=== PATIENT | female | born 1960 | race Caucasian/White ===

== ENCOUNTER → 2016-12-30 | Outpatient (CLI) | payer OTHER ==
[~2016-12-30] MED LIST: B-COCAP2; CLC100; DIGESTIVE ENZYMES; EXCETAB42; IBUP600T44; LRT5; MULT-506; THYROID
== END | disposition home or self-care (01) ==
LOC: C.PAPS 15:13
PROVIDERS: ATTEND Obstetrics & Gynecology
DX: Z12.4 Encounter for screening for malignant neoplasm of cervix (principal)

== ENCOUNTER → 2017-01-05 | Outpatient (CLI) | payer OTHER ==
--- NOTE | 2017-01-05 14:36 | MAMMOGRAPHY REPORT ---
BILATERAL DIGITAL DIAGNOSTIC MAMMOGRAM TOMOSYNTHESIS WITH CAD: 01/05/2017 CLINICAL HISTORY: 56-year-old woman presents for follow-up of benign-appearing microcalcifications i n the upper outer quadrant of the right breast, and a benign appearing lucent oval circumscribed sub -centimeter mass in the medial left breast. She is status post benign biopsy in the 8:00 left breas t which yielded fibrocystic changes. TECHNIQUE: Bilateral CC and MLO 2-D digital and tomosynthesis images, spot magnification right CC an d ML views were obtained. Current study was also evaluated with a Computer Aided Detection (CAD) sy stem. COMPARISON: Comparison is made to exams dated: 04/08/2016 ultrasound biopsy, 04/08/2016 mammogram, mammogram, 02/27/2012 mammogram - [facility], and 11/11/2006 mammogram. BREAST COMPOSITION: There are scattered areas of fibroglandular density in both breasts. FINDINGS: There is a ribbon chapped metallic biopsy marker in the 8:00 left breast. No residual mas s is seen at the biopsy site, which is concordant of the pathology results of benign fibrocystic patrick nge. This most likely represented a cyst. The lucent circumscribed oval mass located medial to the biopsy marker is unchanged measuring 5 mm. There are a few stable benign-appearing microcalcificat ions within the left breast. No new suspicious mass, architectural distortion or cluster of suspici ous microcalcifications. There are several benign rim calcifications within the right breast. The cluster of microcalcificat ions in the upper outer middle one third of the right breast is no longer identified on the spot mag nification views or the full field views, confirming benignity. No new suspicious mass or focal are as of architectural distortion are identified in the right breast. IMPRESSION: ACR BI-RADS CATEGORY 2: BENIGN No residual mass at the site of prior benign biopsy in the left breast, and no microcalcifications i dentified in the right upper outer quadrant, confirming benignity in each breast. There is no mammo graphic evidence of malignancy bilaterally. Recommend follow-up in 1 year for next annual screening mammogram. These results and recommendations were discussed with the patient at the time of the ex am. Approximately 10% of breast cancers are not detected with mammography. A negative mammographic repor t should not delay biopsy if a clinically suggestive mass is present. Lexis Richard M.D. ay/:01/05/2017 12:22:54 Single Pointed Operator: Clara OGLESBY)(Roberto), [facility] letter sent: Normal 1/2 BI-RADS Code: ACR BI-RADS Category 2: Benign
== END | disposition home or self-care (01) ==
LOC: C.MAMM 10:48
PROVIDERS: ATTEND Obstetrics & Gynecology
DX: R92.0 Mammographic microcalcification found on diagnostic imaging of breast (principal); N63 Unspecified lump in breast

== ENCOUNTER 2017-10-19 09:34 | Inpatient (IN) | payer OTHER ==
[2017-09-22 10:11] VITALS: BMI 32.0
--- NOTE | 2017-09-22 11:00 | PAT Medication Instructions ---
Service Date Sep 22, 2017. Current Home Medication List Hydrochlorothiazide (Hctz), 25 MG PO QAM Ibuprofen (Motrin), 600 MG PO Q8 Multivitamin (Multivitamin), 1 TAB PO QAM Thyroid ([place] Thyroid), 60 MG PO QAM [Cbd Oil], 1 DROP SL DAILY PRN for Pain [Cbd Topical], 1 DOSE TOP DAILY PRN for Pain Medication Instructions For Your Scheduled Surgery - Hold the following medications 7 days prior to surgery: [Cbd Oil], 1 DROP SL DAILY PRN for Pain - Hold the following medications 24 hours prior to surgery: [Cbd Topical], 1 DOSE TOP DAILY PRN for Pain - Hold the following medications the morning of surgery: Hydrochlorothiazide (Hctz), 25 MG PO QAM Multivitamin (Multivitamin), 1 TAB PO QAM Ibuprofen (Motrin), 600 MG PO Q8h - Take the following medications the morning of surgery with a sip of water OTHERWISE NOTHING TO EAT OR DRINK AFTER MIDNIGHT: Thyroid ([place] Thyroid), 60 MG PO QAM - Take the following medications as scheduled the night before surgery: Ibuprofen (Motrin), 600 MG PO Q8h If you have any questions please call us at [phone] or [phone] or [phone]
[2017-09-22 11:25] LABS: BASO % 0.4 %; BASO ABS # 0.03 K/uL (0-0.2); COMPLETE YES; EOS % 1.5 %; HEMATOCRIT 43.3 % (37-47); IG% 0.1 %; LYMPH % 29.1 %; LYMPH ABS # 1.95 K/uL (1.2-3.4); MEAN CELL VOLUME 88.9 fL (80-100); MEAN CORPUSCULAR HEMOGLOBIN 30.8 pg (25-34); MEAN CORPUSCULAR HGB CONC 34.6 g/dl (32-36); MEAN PLATELET VOLUME 9.4 fL (7.4-10.4); NEUT % 61.9 %; PLATELET COUNT 278 K/uL (130-400); RED BLOOD COUNT 4.87 M/uL (4.2-5.4); WHITE BLOOD COUNT 6.69 K/uL (4.8-10.8)
[2017-09-22 11:27] LABS: URINE APPEARANCE CLEAR (CLEAR); URINE BILIRUBIN NEG (NEG); URINE COLOR YELLOW; URINE NITRITE NEG (NEG); URINE PH 6.5 (4.5-7.5); UROBILINOGEN NEG (NEG); ZZUR CULT IF INDIC CLEAN CATCH NO
[2017-09-22 11:29] LABS: MANUAL MICROSCOPIC REQUIRED? NO; REVIEW REQ? NO
--- NOTE | 2017-09-22 11:29 | DIAGNOSTIC IMAGING REPORT ---
CHEST 2 VIEWS ROUTINE CLINICAL HISTORY: Preoperative chest COMPARISON STUDY: No previous studies for comparison. FINDINGS: The cardiac and mediastinal contours are normal. There is no evidence of focal pulmonary consolidation. There is no evidence of failure. No pleural effusions are visualized.[ IMPRESSION: No active disease in the chest. Electronically signed by: Lenin Levy M.D. 09/22/2017 11:27 AM Dictated Date/Time: 09/22/2017 11:27 AM
[2017-09-22 11:36] LABS: INR 0.9 (0.9-1.1); PROTHROMBIN TIME (PATIENT) 9.9 SECONDS (9.0-12.0)
[2017-09-22 12:01] LABS: BUN/CREATININE RATIO 19.3 (10-20); CALCIUM 9.5 mg/dl (8.5-10.1); CREATININE 0.81 mg/dl (0.60-1.20); POTASSIUM 3.5 mmol/L (3.5-5.1)
[~2017-10-19] VITALS: Ht 170.2 cm; Wt 92.8 kg
[2017-10-19] VITALS (11 sets, daily range): BP systolic 117–177; BP diastolic 71–94; PULSE 78–94; TEMP 36.3–36.6; O2SAT 92–99; Ht 170.2 cm; Wt 92.8 kg
[~2017-10-19 09:34] MED LIST changes: -B-COCAP2; +CBD OIL SL; +CBD TOP; +CEFAZOLIN 2000MG IV PUSH 10 ML IV SCH; -CLC100; -DIGESTIVE ENZYMES; -EXCETAB42; +HYDR25TA4 PO; -IBUP600T44; +IBUP600T44 PO; +LACTATED RINGER'S 1000ML 1,000 ML IV SCH; -LRT5; -MULT-506; +MULT-506 PO; +SCOPOLAMINE 1.5 MG TDSY TD SCH; +THY/30 PO; -THYROID
[2017-10-19] MEDS ORDERED: FLUMAZENIL 0.1 MG/1 ML 10 ML VIAL IV PRN (11:00)
[2017-10-19] MEDS ORDERED: NALOXONE HCL 0.4 MG/1 ML VIAL/CARP IV PRN ×3 (11:00→13:15)
[2017-10-19] MEDS ORDERED: ATROPINE SULFATE 0.1 MG/ML 5ML SYR IV PRN (11:00)
[2017-10-19] MEDS ORDERED: PHENYLEPHRINE 100MCG/ML 5ML SYR IV PRN (11:00)
[2017-10-19] MEDS ORDERED: MEPERIDINE HCL 25 MG/ML CARP IV PRN (11:00)
[2017-10-19] MEDS ORDERED: ONDANSETRON INJ 2 MG/ML 2 ML VIAL IV PRN ×2 (11:00→13:15)
[2017-10-19] MEDS ORDERED: LABETALOL HCL IV 5 MG/ML 20ML IV PRN (11:00)
[2017-10-19] MEDS ORDERED: EpHEDrine SULFATE INJ 50 MG/ML AMP IV PRN (11:00)
[2017-10-19] MEDS ORDERED: FENTANYL CITRATE INJ 50 MCG/1 ML 2 ML VIAL IV PRN (11:00)
[2017-10-19] MEDS ORDERED: HYDROmorphone INJ 2 MG/ML SYR/VIAL IV PRN (11:00)
[2017-10-19] MEDS ORDERED: MIDAZOLAM HCL 1 MG/ML 2ML VIAL ONE (11:03)
[2017-10-19] MEDS ORDERED: FENTANYL CITRATE INJ 50 MCG/1 ML 2 ML VIAL ONE ×3 (11:03→12:51)
--- NOTE | 2017-10-19 11:12 | History and Physical ---
History & Physical Date Oct 19, 2017. Chief Complaint Back and leg pain History of Present Illness The patient is a 57 year old female with complaints of back and leg pain Additional History Hepatic Disease: No Endocrine Disorder: No Kidney Disease: No Hypertension: Yes Heart Disease: No Bleeding Tendencies: No Infectious Diseases: No Allergies Coded Allergies: Oxycodone (Verified Allergy, Unknown, nausea and vomiting, 10/19/17) Propoxyphene (Verified Allergy, Unknown, nausea and vomiting, 10/19/17) Codeine (Verified Adverse Reaction, Mild, VOMITING, 10/19/17) Home Medications Scheduled Hydrochlorothiazide (Hctz), 25 MG PO QAM Ibuprofen (Motrin), 600 MG PO Q8 Multivitamin (Multivitamin), 1 TAB PO QAM Thyroid ([place] Thyroid), 60 MG PO QAM Scheduled PRN [Cbd Oil], 1 DROP SL DAILY PRN for Pain [Cbd Topical], 1 DOSE TOP DAILY PRN for Pain Physical Examination Skin: warm/dry, no rash Eyes: normal inspection, EOMI, sclerae normal ENT: normal ENT inspection, pharynx normal Head: normocephalic, atraumatic Neck: supple, no adenopathy, trachea midline Respiratory/Chest: lungs clear, normal breath sounds, no respiratory distress Cardiovascular: regular rate, rhythm, no edema, no murmur Abdomen / GI: normal bowel sounds, non tender Back: normal inspection Extremities: normal inspection, normal range of motion Neurologic/Psych: no motor/sensory deficits, alert, normal reflexes, oriented x 3 Diagnosis Lumbar spinal stenosis Plan of Treatment L4 5 decompression fusion
[2017-10-19] MEDS ORDERED: BACITRACIN 50000 UNIT VIAL ONE (11:16)
[2017-10-19] MEDS ORDERED: BUPIVACAINE/EPINEPHRINE 0.5% MPF 1:200,000 30 ML VIAL ONE (11:16)
[2017-10-19] MEDS ORDERED: HYDROmorphone INJ 2 MG/ML SYR/VIAL ONE ×2 (12:01→13:08)
[2017-10-19] MEDS ORDERED: LIDOCAINE HCL 2% 2 ML VIAL (20MG/ML) ONE (13:07)
[2017-10-19] MEDS ORDERED: DEXAMETHASONE SOD INJ 4 MG/ML VIAL ONE (13:07)
[2017-10-19] MEDS ORDERED: ONDANSETRON INJ 2 MG/ML 2 ML VIAL ONE (13:07)
[2017-10-19] MEDS ORDERED: PROPOFOL IV EMULSION 10 MG/ML 20 ML VIAL IV ONE (13:07)
[2017-10-19] MEDS ORDERED: GLYCOPYRROLATE INJ 0.2 MG/ML VIAL ONE (13:09)
[2017-10-19] MEDS ORDERED: NEOSTIGMINE METHYLSULFATE 1 MG/ML 10ML VIAL ONE (13:09)
[2017-10-19] MEDS ORDERED: PHENYLEPHRINE 100MCG/ML 5ML SYR ONE (13:09)
[2017-10-19] MEDS ORDERED: EpHEDrine SULFATE 50MG/5ML SYR ONE (13:09)
[2017-10-19] MEDS ORDERED: SODIUM CHLORIDE 0.9% 1000ML 1,000 ML IV SCH (13:09)
[2017-10-19] MEDS ORDERED: KETOROLAC TROMETHAMINE 30 MG/ML VIAL ONE (13:09)
[2017-10-19] MEDS ORDERED: ROCURONIUM BROMIDE 10 MG/ML 5 ML VIAL IV ONE (13:12)
[2017-10-19] MEDS ORDERED: FLOSEAL HEMOSTATIC MATRIX 10ML TOP ONE (13:12)
[2017-10-19] MEDS ORDERED: DO NOT ADMINISTER PNEUMOCOCCAL VACCINE PRN ×2 (13:15)
[2017-10-19] MEDS ORDERED: ALUMINUM/MAGNESIUM SUSP 30 ML UDC PO PRN (13:15)
[2017-10-19] MEDS ORDERED: METOCLOPRAMIDE HCL INJ 5 MG/ML 2 ML VIAL IV PRN (13:15)
[2017-10-19] MEDS ORDERED: SOD PHOSPHATE/SOD BIPHOSPHATE ENEMA 132 ML BTL PR PRN (13:15)
[2017-10-19] MEDS ORDERED: ACETAMINOPHEN 500 MG TAB PO PRN (13:15)
[2017-10-19] MEDS ORDERED: LORAZEPAM 0.5 MG TAB PO PRN (13:15)
[2017-10-19] MEDS ORDERED: MAGNESIUM HYDROXIDE SUSP 30 ML UDC PO PRN (13:15)
[2017-10-19] MEDS ORDERED: BISACODYL 10 MG SUPP PR PRN (13:15)
[2017-10-19] MEDS ORDERED: FAMOTIDINE 20 MG TAB PO PRN (13:15)
[2017-10-19] MEDS ORDERED: DO NOT ADMINISTER FLU VACCINE PRN ×3 (13:15)
[2017-10-19] MEDS ORDERED: hydrOXYzine HCL 25 MG TAB PO PRN (13:15)
[2017-10-19] MEDS ORDERED: ACETAMINOPHEN IV 100 ML IV PRN (13:15)
[2017-10-19] MEDS ORDERED: LORAZEPAM INJ 0.5 MG in SYRINGE 0.75 ML IV PRN (13:15)
[2017-10-19] MEDS ORDERED: PROMETHAZINE HCL INJ 12.5 MG in SODIUM CHLORIDE 0.9% 50ML 50 ML IV PRN (13:15)
--- NOTE | 2017-10-19 13:15 | [facility] Operative Report ---
Operative Report Operative Date Oct 19, 2017. Pre-Operative Diagnosis Lumbar Spinal Stenosis L4-L5 Post-Operative Diagnosis Same as preop Procedure(s) Performed L4-L5 Decompression and Fusion; Interbody L4-L5 Surgeon Dr. Gurrola Incident Handler Surgeon(s) Martha Ramos PA-C Estimated Blood Loss 60 ml Findings spinal stenosis Specimens None per Surgeon Description of Procedure Patient was met with preoperatively case discussed all questions addressed. After informed consent was obtained the patient was taken operative suite underwent intubation placed in a prone position the Felice table on top of the Connor frame. All bony prominences well-padded eyes inspected to ensure no external pressure placed upon them. This point the lumbar spines prepped and draped in normal sterile fashion. Sharp dissection the assistance of Bovie cautery was performed onto an exposing the lamina and transverse processes of L4 and 5 bilaterally. From a caudal to cephalad fashion complete laminectomy of L4 was performed addressing severe lateral recess and foraminal disease. Pedicle screws are then placed in L4-L5 bilaterally with the assistance of fluoroscopy. Purposes sheryl was placed. Through a transforaminal port and left complete discectomy of L4 5 was performed and plate created to subcortical bleeding bone and a 12 x 22 mm peek cage filled with ostial amp bone graft tapped in position. The rods were then compressed locked and final position bilaterally. The transverse processes of L4 and 5 burred to subcortical bleeding bone. Infuse calm sponge mask graft and locally harvested morcellized autograft was placed in the posterior lateral gutters. A 15 round AYAN drain inserted. Incision was then closed with 1 Vicryl in the fascia 2-0 Vicryl subcutaneous C4 0 Monocryl for final skin closure Steri-Strips sterile dressings placed. Patient we can take PACU stable condition. Please note Martha Hauser was present throughout the entire procedure involved in patient positioning complex portions of the surgeon final skin closure. I attest to the content of the Intraoperative Record and any orders documented therein. Any exceptions are noted below.
--- NOTE | 2017-10-19 13:20 | DIAGNOSTIC IMAGING REPORT ---
INTRAOPERATIVE LUMBAR SPINE 2 VIEWS CLINICAL HISTORY: L4-L5 DECOMPRESSION AND FUSION COMPARISON STUDY: No previous studies for comparison. FINDINGS: 2 intraoperative fluoroscopic spot views are provided for interpretation. 11 seconds of fluoroscopic time was utilized. There are postsurgical changes of a discectomy and interbody fusion at the L4-5 level. There is posterior spinal fusion with pedicle screws and adjoining spinal rods. IMPRESSION: Postsurgical changes of an L4-5 spinal decompression and fusion. Electronically signed by: Lenin Levy M.D. 10/19/2017 1:18 PM Dictated Date/Time: 10/19/2017 1:18 PM
[2017-10-19] MEDS ORDERED: HYDROmorphone HCL 0.5MG/ML 50 ML CASSETTE ONE (13:28)
--- NOTE | 2017-10-19 13:54 | Anesthesiology Progress Note ---
Anesthesia Post Op Note Date & Time Oct 19, 2017 at 13:54 Vital Signs Pain Intensity: 0 Vital Signs Past 12 Hours Date Time Temp Pulse Resp B/P (MAP) Pulse Ox O2 Delivery O2 Flow Rate FiO2 10/19/17 13:45 67 15 150/79 99 Oxymask 10 10/19/17 13:35 66 12 153/74 98 Oxymask 10 10/19/17 13:27 37.1 74 14 140/76 98 Oxymask 10/19/17 09:59 36.6 85 20 177/94 96 Room Air Notes Mental Status: alert / awake / arousable, participated in evaluation Pt Amnestic to Procedure: Yes Nausea / Vomiting: adequately controlled Pain: adequately controlled Airway Patency, RR, SpO2: stable & adequate BP & HR: stable & adequate Hydration State: stable & adequate Anesthetic Complications: no major complications apparent
[2017-10-19] MEDS: HYDROmorphone HCL 0.5MG/ML 50 ML CASSETTE IV PRN ×2 (14:28→23:21)
[2017-10-19] MEDS: CHECK SCOPOLAMINE PATCH PLACEMENT SCH ×2 (16:00→23:51)
[2017-10-19] MEDS: LACTATED RINGER'S 1000ML 1,000 ML IV SCH ×2 (17:02→20:04)
[2017-10-19] MEDS: CEFAZOLIN IV 2,000 MG in SYRINGE 0 ML IV SCH (20:04)
[2017-10-19] MEDS: DOCUSATE SODIUM/SENNA 50/8.6MG TAB PO SCH (21:12)
[2017-10-19] MEDS ORDERED: NURSING VERBAL MED ORDER ONE (22:15)
[2017-10-20] MEDS: LACTATED RINGER'S 1000ML 1,000 ML IV SCH (01:45)
[2017-10-20 03:38] VITALS: BP 103/63; PULSE 66; TEMP 36.4; O2SAT 97
[2017-10-20] MEDS: CEFAZOLIN IV 2,000 MG in SYRINGE 0 ML IV SCH (04:03)
[2017-10-20 05:15] LABS: BASO % 0.1 %; BASO ABS # 0.01 K/uL (0-0.2); COMPLETE YES; HEMATOCRIT 36.8 % (37-47); IG% 0.3 %; LYMPH % 8.2 %; MEAN CELL VOLUME 89.3 fL (80-100); MEAN CORPUSCULAR HEMOGLOBIN 30.6 pg (25-34); MEAN CORPUSCULAR HGB CONC 34.2 g/dl (32-36); MEAN PLATELET VOLUME 9.1 fL (7.4-10.4); MONO % 6.9 %; NEUT % 84.5 %; PLATELET COUNT 242 K/uL (130-400); RED BLOOD COUNT 4.12 M/uL (4.2-5.4); WHITE BLOOD COUNT 13.47 K/uL (4.8-10.8)
[2017-10-20 05:43] LABS: BUN/CREATININE RATIO 19.7 (10-20); CALCIUM 8.9 mg/dl (8.5-10.1); CREATININE 0.66 mg/dl (0.60-1.20); POTASSIUM 4.2 mmol/L (3.5-5.1)
[2017-10-20] MEDS ORDERED: DC PCA ONE (06:00)
[2017-10-20] MEDS ORDERED: HYDROmorphone INJ 1 MG/ML SYR IV PRN (06:00)
[2017-10-20] MEDS ORDERED: COUGH DROP (SUGAR FREE) LOZ 24 LOZ/1 BOX ONE (06:06)
[2017-10-20] MEDS ORDERED: COUGH DROP (SUGAR FREE) LOZ 24 LOZ/1 BOX PO PRN (06:15)
[2017-10-20] MEDS ORDERED: NURSING DECISION MEDICATION ORDER SCH (06:15)
[2017-10-20] MEDS ORDERED: NURSING VERBAL MED ORDER ONE (07:15)
[2017-10-20] MEDS: CHECK SCOPOLAMINE PATCH PLACEMENT SCH ×3 (07:32→23:34)
[2017-10-20 07:45] VITALS: BP 124/76; PULSE 68; TEMP 36.6; O2SAT 96
--- NOTE | 2017-10-20 08:02 | Anesthesiology Progress Note ---
Anesthesia Post Op Note Date & Time Oct 20, 2017 at 08:02 Vital Signs Pain Intensity: 0.0 Vital Signs Past 12 Hours Date Time Temp Pulse Resp B/P (MAP) Pulse Ox O2 Delivery O2 Flow Rate FiO2 10/20/17 07:45 36.6 68 18 124/76 (92) 96 Room Air 10/20/17 07:05 Room Air 10/20/17 03:38 36.4 66 16 103/63 (76) 97 Room Air 10/19/17 23:30 Room Air 10/19/17 23:01 36.3 78 16 117/71 (86) 92 Room Air 10/19/17 20:10 36.4 80 16 138/88 (105) 98 Nasal Cannula 3.0 Notes Mental Status: alert / awake / arousable, participated in evaluation Pt Amnestic to Procedure: Yes Nausea / Vomiting: adequately controlled Pain: adequately controlled Airway Patency, RR, SpO2: stable & adequate BP & HR: stable & adequate Hydration State: stable & adequate Anesthetic Complications: no major complications apparent
[2017-10-20] MEDS: HYDROCHLOROTHIAZIDE 25 MG TAB PO SCH (08:22)
[2017-10-20] MEDS: ARMOUR THYROID 30 MG TAB PO SCH (08:22)
[2017-10-20] MEDS ORDERED: HYDROCODONE/ACETAMOPHEN 5/325MG TAB PO PRN (09:30)
[2017-10-20 12:03] VITALS: BP 112/73; PULSE 74; TEMP 36.9; O2SAT 93
--- NOTE | 2017-10-20 12:28 | Progress Note ---
Progress Note Date of Service Oct 20, 2017. Progress Note Patient's postop day #1. Leg symptoms are markedly improved. Vital signs are stable. Back pain controlled. AYAN drain decreasing appropriate. Strength is intact testing. Assessment status post lumbar depression fusion replant this time will continue to advance physical therapy and bowel regimen anticipate possible home tomorrow.
[2017-10-20] MEDS ORDERED: HYDR-5688 PO (12:30)
--- NOTE | 2017-10-20 12:31 | Discharge Instructions ---
Discharge Instructions Date of Service Oct 20, 2017. Admission Reason for Admission: Lumbar Spinal Stenosis Discharge Discharge Diagnosis / Problem: lumbar spinal stenosis Discharge Goals Goal(s): Improve function Activity Recommendations Activity Limitations: per Instructions/Follow-up section . Instructions / Follow-Up Instructions / Follow-Up ACTIVITY RECOMMENDATIONS: SELF CARE INSTRUCTIONS AFTER THORACIC/LUMBAR FUSIONS 1. You may walk to your tolerance. It is good exercise for your legs and back. Expect some back and intermittent leg aches and pains. 2. You may perform "counter-top" level activities (make a sandwich, maya with a project, etc.). 3. No bending or lifting of more than 10 pounds or back twisting of any nature (roll like a log when turning in bed). 4. You may ride in a car for 20-30 minutes at a time. No driving until after your first visit with your doctor. 5. Frequent changes of position and restricting sitting to 30 minutes at a time will help limit the amount of back spasms and stiffness you may experience. 6. You may discontinue the use of ambulatory aids (cane, crutches, etc.) once your strength and confidence allow. 7. You may sales force administrator the shower and let water strike your incision when you arrive home at least once daily. Do not take a tub bath, sit in a hot tub or go into a swimming pool until after your first recheck in the office. SPECIAL CARE INSTRUCTIONS: VERY IMPORTANT TO READ AND REVIEW A. Your surgical incision has been closed with a cosmetic suture under the skin that will dissolve in about 6 weeks. In 14 days, you can use a pair of clean scissors and cut the suture that is left outside of the skin at the ends of your incision. 1. The small skin tapes can be removed 7 days after surgery if they have not fallen off by that point. 2. You may keep the wound open to air as much as possible to promote healing after post-op day number 5 unless told otherwise by your doctor. 3. If you think the wound looks like it is becoming infected (redness or worsening drainage) and/or you are experiencing fever, chill or worsening back pain and muscle spasms, contact the office so that we may evaluate you as soon as possible. B. Complications are uncommon, but please contact us if you have any signs or symptoms of: 1. wound infection (fever higher than 102.5 degrees F, redness, separation of wound, drainage, or increasing pain from the incision) 2. blood clots in legs (pain, swelling, redness and warmth in legs) 3. urinary tract infection (fever higher than 102.5 degrees F, burning upon urination or increased frequency of urination) 4. nerve problems (inability to walk on your toes or heels, numbness, loss of bowel or bladder control) 5. any other symptoms that concern you C. Please call the office at if you have any concerns or questions about your operation or recovery. D. No smoking! Smoking drastically decreases the chance of a solid fusion. E. Do not take any anti-inflammatory medications (Indocin, Advil, Motrin, Aspirin, Naprosyn, etc.) as these may inhibit the chance of a solid fusion. Tylenol is okay to take for pain. MANAGING PAIN AFTER SPINAL SURGERY 1. Narcotic medication is intended for short-term use and will be provided for surgical pain. Surgical pain usually lasts for a period of 4-6 weeks. Narcotic medication includes Percocet, Vicodin, Darvocet, Tylenol #3 or Lortab. 2. Longer-term pain is more appropriately treated with non-narcotic medication such as Tylenol ES. 3. Muscle spasm is not appropriately treated with narcotics. Muscle relaxers such as Soma, Flexeril or Skelaxin can be used along with Tylenol ES. 4. Remember that we all live with some "aches and pains". This is not unusual or uncommon after an injury or as we get older. a. Back pain is expected and may include muscle spasms for 4 to 6 weeks after surgery. The pain should gradually improve. If the pain worsens for no apparent reason, please contact the office. b. Intermittent leg pain may also be experienced and should not be concerned about unless it worsens for no apparent reason. If so, please contact the office. 5. We will provide appropriate medication within the normal guidelines of their prescribed use. We will also be very cautious and aware of potential abuse and extended duration of patients' medication needs. a. Pain medications are for your comfort and to assist with sleep and rest so that the tissue can heal. They are not provided in order to return to normal activity and should not be used through the day. To do so or worsening pain at night can result from ongoing tissue damage and development of tolerance to the prescribed medicine. 6. Please allow 2-3 days to process refills. Prescriptions will not be mailed but must be picked up at the office. FOLLOW UP VISIT: Keep your scheduled follow-up appointment. Any questions, please call the office at . Current Hospital Diet Patient's current hospital diet: Regular Diet Discharge Diet Recommended Diet: Regular Diet Procedures Procedures Performed: L4-L5 Decompression and Fusion; Interbody L4-L5 Pending Studies Studies pending at discharge: no Medical Emergencies . Who to Call and When: Medical Emergencies: If at any time you feel your situation is an emergency, please call 911 immediately. . Non-Emergent Contact Non-Emergency issues call your: Primary Care Provider . "Provider Documentation" section prepared by Jaron Gurrola. . VTE Core Measure Inpt VTE Proph given/why not?: Melinda Nichole, SCD's
[2017-10-20] MEDS: HYDROCODONE/ACETAMOPHEN 5/325MG TAB PO PRN ×3 (13:04→22:03)
[2017-10-20 16:01] VITALS: BP 126/77; PULSE 68; TEMP 36.7; O2SAT 96
[2017-10-20] MEDS: DOCUSATE SODIUM/SENNA 50/8.6MG TAB PO SCH (20:59)
[2017-10-20 22:50] VITALS: BP 124/70; PULSE 84; TEMP 36.9; O2SAT 97
[2017-10-21] MEDS: HYDROmorphone INJ 0.5 MG/0.5 ML SYR IV PRN ×2 (00:54→13:20)
[2017-10-21] MEDS: HYDROCODONE/ACETAMOPHEN 5/325MG TAB PO PRN ×4 (05:53→20:13)
[2017-10-21] MEDS: POLYETHYLENE (MIRALAX) 17 GM PACK PO SCH ×4 (05:53→23:39)
[2017-10-21 07:00] VITALS: BP 92/60; PULSE 88; TEMP 36.6; O2SAT 97
[2017-10-21] MEDS: CHECK SCOPOLAMINE PATCH PLACEMENT SCH ×3 (07:20→23:38)
[2017-10-21] MEDS: ARMOUR THYROID 30 MG TAB PO SCH (07:21)
[2017-10-21] MEDS: HYDROCHLOROTHIAZIDE 25 MG TAB PO SCH (07:21)
[2017-10-21 07:59] VITALS: BP 136/70; PULSE 80; TEMP 37.1; O2SAT 97
[2017-10-21 08:04] VITALS: O2SAT 97
--- NOTE | 2017-10-21 09:07 | Discharge Summary ---
Orthopedic Discharge Summary Admission Date/Reason Oct 19, 2017 at 11:00 Lumbar Spinal Stenosis. Discharge Date/Disposition Oct 21, 2017 Home Diagnosis Principal Diagnosis: Lumbar spinal stenosis Admission Physical Exam As per Admitting History & Physical. Hospital Course Patient underwent lumbar decompression fusion tolerated as well as taken to the orthopedic floor postoperatively. Postoperative day #1 she was up and amatory leg pain improved. Postoperative day 2 she continued to progress AYAN drain decreased appropriate least subsequently discharge home. Discharge orders and instructions found on the chart for further review. Discharge Instructions Please refer to the electronic Patient Visit Report (Discharge Instructions) for additional information.
[2017-10-21 09:33] VITALS: BP 136/70; PULSE 80; TEMP 37.1; O2SAT 97
[2017-10-21] MEDS ORDERED: NURSING VERBAL MED ORDER ONE (13:45)
[2017-10-21] MEDS: KETOROLAC TROMETHAMINE 30 MG/ML VIAL IV. PRN ×2 (14:24→23:44)
[2017-10-21 15:24] VITALS: BP 119/82; PULSE 75; TEMP 36.7; O2SAT 90
[2017-10-21] MEDS: DOCUSATE SODIUM/SENNA 50/8.6MG TAB PO SCH (20:40)
[2017-10-21 23:30] VITALS: BP 126/79; PULSE 77; TEMP 36.5; O2SAT 96
[2017-10-22] MEDS: HYDROCODONE/ACETAMOPHEN 5/325MG TAB PO PRN ×3 (06:01→14:38)
[2017-10-22] MEDS: POLYETHYLENE (MIRALAX) 17 GM PACK PO SCH ×2 (06:51→11:48)
[2017-10-22 07:53] VITALS: BP 123/77; PULSE 77; TEMP 36.5; O2SAT 91
[2017-10-22] MEDS: KETOROLAC TROMETHAMINE 30 MG/ML VIAL IV. PRN (08:03)
--- NOTE | 2017-10-22 09:02 | Progress Note ---
Progress Note Date of Service Oct 22, 2017. Progress Note Patient very comfortable today. Again leg pain markedly improved. Vital signs are stable. AYAN drain down a 20 mL. Assessment status post lumbar decompression fusion. Planned this time she will be discharged home today. Discharge orders and instructions reviewed.
[2017-10-22] MEDS: ARMOUR THYROID 30 MG TAB PO SCH (09:10)
[2017-10-22] MEDS: HYDROCHLOROTHIAZIDE 25 MG TAB PO SCH (09:10)
== END 2017-10-22 14:50 | disposition home or self-care (01) | DRG 455 ==
LOC: C.ACU 09:34 → C.3E 11:00 → ENRESERV 14:13
PROVIDERS: ADMIT Orthopaedic Surgery Orthopaedic Surgery of the Spine; ATTEND Orthopaedic Surgery Orthopaedic Surgery of the Spine
PROC: 0SG00AJ Fusion of Lumbar Vertebral Joint with Interbody Fusion Device, Posterior Approach, Anterior Column, Open Approach (ICD-10-PCS; principal; 2017-10-19 11:45)
PROC: 0ST20ZZ Resection of Lumbar Vertebral Disc, Open Approach (ICD-10-PCS; principal; 2017-10-19 11:45)
PROC: 0SG0071 Fusion of Lumbar Vertebral Joint with Autologous Tissue Substitute, Posterior Approach, Posterior Column, Open Approach (ICD-10-PCS; principal; 2017-10-19 11:45)
DX: M48.061 Spinal stenosis, lumbar region without neurogenic claudication (principal); I10 Essential (primary) hypertension; E03.9 Hypothyroidism, unspecified; E66.9 Obesity, unspecified; Z68.32 Body mass index [BMI] 32.0-32.9, adult; Z79.1 Long term (current) use of non-steroidal anti-inflammatories (NSAID); Z79.899 Other long term (current) drug therapy; Z88.5 Allergy status to narcotic agent